=== PATIENT | female | born 1965 | race Caucasian/White ===

== ENCOUNTER 2016-06-30 08:54 | Inpatient (IN) | payer BC ==
[~2016-06-30] VITALS: Ht 167.6 cm; Wt 79.0 kg
[2016-07-05] MEDS ORDERED: LISI10TA3 PO (12:11)
[2016-07-05] MEDS ORDERED: HYDR25TA5 PO (12:11)
[2016-07-05] MEDS ORDERED: LEVO125T4 PO (12:11)
[2016-07-05] MEDS ORDERED: DICL1CAP4 PO (12:12)
[2016-07-23] MEDS: CHLORHEXIDINE GLUCONATE 4% SOLN 120 ML BTL TOP SCH (05:45)
[2016-07-23] MEDS ORDERED: ceFAZolin 2 GM PREMIX 50 ML IV SCH (05:45)
[2016-07-23] MEDS ORDERED: VANCOMYCIN 1000 MG/NS 250 ML (for <70 kg) IV SCH ×2 (05:45)
[2016-07-23] MEDS ORDERED: LACTATED RINGER'S 1000 ML INJ 1,000 ML ONE (05:50)
[2016-07-23] MEDS ORDERED: LACTATED RINGER'S 1000 ML IV SCH (06:00)
[2016-07-23] MEDS ORDERED: METOPROLOL TARTRATE 25 MG TAB PO PRN (06:00)
[2016-07-23] MEDS ORDERED: SODIUM CHLORID 0.9% 500 ML IV SCH (06:00)
[2016-07-23] MEDS ORDERED: INSULIN HUMAN REGULAR 1,000 UNITS/10 ML VIAL SQ PRN (06:00)
[2016-07-23 06:14] VITALS: BP 131/78; PULSE 82; RESP 16; TEMP 99.4; O2SAT 95
[2016-07-23] MEDS ORDERED: LISI-515 PO (06:14)
[2016-07-23] MEDS ORDERED: GENTAMICIN SULFATE 80 MG/2 ML VIAL ONE (07:45)
[2016-07-23] MEDS ORDERED: FAMOTIDINE 20 MG/2 ML VIAL ONE (08:16)
[2016-07-23] MEDS ORDERED: ACETAMINOPHEN 1000 MG/100 ML VIAL IV ONE (08:16)
[2016-07-23] MEDS ORDERED: MIDAZOLAM HCL 2 MG/2 ML VIAL ONE (08:16)
[2016-07-23] MEDS ORDERED: HYDROmorphone HCL PF 2 MG/ML VIAL ONE (08:17)
[2016-07-23] MEDS ORDERED: fentaNYL CITRATE 250 MCG/5 ML AMP ONE (08:17)
[2016-07-23] MEDS: TRANEXAMIC ACID IV SCH ×2 (08:30→08:54)
[2016-07-23] MEDS: EXPAREL PERI-ARTICULAR INJECTION (TOTAL VOL. 60 ML) P-ARTICULR SCH ×4 (08:30→09:16)
[2016-07-23] MEDS: SODIUM CHLORIDE 0.9% IV SCH ×2 (08:30→08:54)
[2016-07-23] MEDS ORDERED: HYDR-3366 PO (09:12)
[2016-07-23] MEDS ORDERED: XARE10TA PO (09:12)
[2016-07-23] MEDS ORDERED: WALKER/ADULT/FO1 MIS (09:12)
--- NOTE | 2016-07-23 09:13 | HHI.FF ---
Face to Face Verification Diagnosis: (1) Status post total replacement of right hip Physical Therapy Gait training Hip: Total hip, Protocol: Right, Progress to weight bearing Right LE Weight Bearing: WB as tolerated Nursing Dressing Changes: Daily dressing change, Coverderm/Primapore (begin adding xeroform on POD 10) I have seen patient Tamara Coleman on 07/23/16. My clinical findings support the need for the requested home health care services because: Ltd mobility - disease progression I certify that my clinical findings support that this patient is homebound because: Post-op weakness Kirit Loaiza Jul 23, 2016 09:13
[2016-07-23] MEDS ORDERED: SODIUM CHLORIDE 0.9% FLUSH 5 ML FLUSH IVF PRN (10:30)
[2016-07-23] MEDS ORDERED: ONDANSETRON HCL 4 MG/2 ML VIAL IVP PRN (10:30)
[2016-07-23] MEDS ORDERED: NALOXONE HCL 0.4 MG/ML AMP IV PRN (10:30)
[2016-07-23] MEDS ORDERED: MORPHINE SULFATE 4 MG/ML INJ IV PUSH PRN (10:30)
--- NOTE | 2016-07-23 10:35 | PD.ORT.PN ---
Subjective Subjective Remarks POD#0 s/p right MINERVA--- anterior Objective Vitals Vital Signs Date Time Temp Pulse Resp B/P Pulse Ox O2 Delivery O2 Flow Rate FiO2 07/23/16 06:14 99.4 82 16 131/78 95 Objective Remarks Clean dry dressing in place. Drain in place. Assessment & Plan Assessment and Plan Discontinue drain postop day #1 after physical therapy Discontinue Gamble postop day 1 Weight-bear as tolerated Plan on SNF on Tuesday Xarelto 28 days--history of DVT Quique Morrison MD Jul 23, 2016 10:34
--- NOTE | 2016-07-23 10:38 | PD.OP ---
cc: Quique Logan MD Operative Report Date of Surgery: Jul 23, 2016 Preoperative Diagnosis: Severe right hip osteoarthritis Postoperative Diagnosis: Procedure: Right total hip arthroplasty via anterior approach Anesthesia: Gen. Surgeon: Quique Logan Diesel Engineer(s): BERE Connors PA-C The surgical procedure was assisted by my physician liaison inspection laboratory assistant. My P.A. presence was necessary throughout this case for the manipulation and positioning of the surgical extremity. My P.A. was assisting me throughout the duration of this procedure. The skill set of a physician liaison inspection laboratory assistant was medically necessary to complete this procedure. During the surgical case the surgical assist was working at the back table and the physician liaison inspection laboratory assistant was directly assisting me. Operation and Findings: PLAN OF ACTIVITY Weight bear as tolerated. DRAINS: 7-mm SHANITA drain. IMPLANTS USED DePuy Corail size 13 stem with a size [50] Washington Gription cup, size 50 Altrx polyethylene liner cup and a [32+1.5] ceramic Biolox ceramic head. DETAILS OF PROCEDURE: This patient has a long history of hip pain. Patient was found to have severe osteoarthritis. The patient had radiographic evidence of joint space narrowing with [id number] arthritis and osteophytes around the acetabulum as well as the femoral head. There was also some cystic changes. The patient failed conservative treatment with pain medications, anti-inflammatories, physical therapy, assistive devices including a cane, as well as therapeutic injection of the hip. Patient's hip arthritis was limiting his ability to ambulate and perform activities of daily living. The patient wished to proceed with surgery and informed consent was obtained. Operative site was marked. I discussed both posterior approach and anterior approach with the patient and decision was made for anterior approach. Patient was brought to OR and placed on OR table. IV sedation and general anesthesia was administered by anesthesiologist. Patient positioned on a Jaimee table and was given IV antibiotics. Time-out procedure was performed. The hip and thigh were prepped with alcohol followed by Hibiclens. The thigh was draped in the usual sterile fashion. Clean Air Suite was used for this procedure. The procedure began with a 5-inch incision over the anterolateral thigh. Subcutaneous tissue was dissected with Bovie. The fascia over the tensa fasciae latae was incised. Care was taken to avoid injury to the lateral femoral cutaneous nerve. The tensor muscle was retracted laterally. Sartorius was retracted medially. Retractors were now placed. The reflected head of the rectus is now elevated. A capsulotomy was performed over the anterior head capsule. Sutures were placed to help retract the capsule. At this point the femoral head and neck were identified. With soft tissue protected, oscillating saw was used to make a cut through the femoral neck, the femoral head was now removed. At this point attention was turned to preparation of the acetabulum. The labrum was excised. The acetabulum was sequentially reamed up to size [50]. A Washington cup was now placed. Fluoroscopy was used to aid in identification of appropriate version. Cup was fully impacted and found to have excellent fit. Hole eliminator was now placed. The liner was now impacted into the cup. At this point the hip was externally rotated. A hook was placed around the proximal femur. The capsule was released off the lateral and medial femur. The hip was now extended and adducted. Retractors were placed around the proximal femur to allow for exposure. A box osteotome was used to remove the lateral cortex of the femoral neck. A broach was used to help lateralize the prosthesis. Canal finder was used to create a path down the canal. Next, the canal was sequentially broached up to size [12]. This was found to be an excellent fit. Calcar planer was placed. A standard head was placed, hip was reduced. Trial head was now was placed and the hip was found to have excellent stability with good range of motion. The leg lengths were measured under fluoroscopy. She had a significant leg length discrepancy preoperatively with right leg approximately 1 inch shorter than the left. The right leg was still shorter than the left. The 12 Trial broach was removed. The canal was broached up to size 13. The size 13 was left proud to accommodate the leg length discrepancy. Leg lengths were remeasured under fluoroscopy and found to be equal at this time. The size 13 Corail stem was opened. Stem was fully impacted into the proximal femur in appropriate version. The femoral head was placed. The hip was again reduced. Fluoroscopy confirmed excellent alignment of prosthesis. The wound was thoroughly irrigated and capsule was closed with #1 Vicryl. The fascia over the tensor fasciae muscle was closed with #1 Vicryl, subcutaneous tissue was closed with 3-0 Vicryl and the skin was closed with jagdish and Dermabond skin closure. The capsule layers were injected with a mixture of saline and bupivicaine. Dressings were applied. The patient was transferred to Recovery Room in stable condition. Quique Logan MD Jul 23, 2016 10:38
[2016-07-23] MEDS ORDERED: NEOSTIGMINE 3 MG/3 ML SYR IV ONE (10:39)
[2016-07-23] MEDS ORDERED: PHENYLEPH/NS 1000 MCG/10 ML SYR IV ONE (10:39)
[2016-07-23] MEDS ORDERED: PROPOFOL 200 MG/20 ML AMP IV ONE (10:39)
[2016-07-23] MEDS ORDERED: LACTATED RINGER'S 1000 ML INJ 1,000 ML IV ONE (10:39)
[2016-07-23] MEDS ORDERED: ePHEDrine/NS 25 MG/5 ML SYR IV ONE (10:39)
[2016-07-23] MEDS ORDERED: ONDANSETRON HCL 4 MG/2 ML VIAL IV PUSH ONE (10:39)
--- NOTE | 2016-07-23 10:46 | RADRPT ---
EXAM DATE/TIME: 07/23/2016 09:05 [facility] COMPARISON: No previous studies available for comparison. INDICATIONS : Post-op total right hip arthroplasty. MEDICAL HISTORY : None. SURGICAL HISTORY : None. ENCOUNTER: Initial ACUITY: 1 day PAIN SCORE: Non-responsive. LOCATION: Right hip. CONCLUSION: Fluoroscopic images during placement of hip prosthesis. No hardware loosening or new fracture. Nick Queen MD on July 23, 2016 at 10:44 Board Certified Radiologist. This report was verified electronically.
[2016-07-23] MEDS: KETOROLAC TROMETHAMINE 30 MG/ML (IVP) VIAL IV PUSH SCH ×2 (11:00→21:03)
[2016-07-23] MEDS ORDERED: DO NOT ADM ANY ANTICOAGULANT DRUGS XX PRN (11:00)
[2016-07-23] MEDS ORDERED: *morphine SULFATE 8 MG/ML PERIprocedure ONLY ONE (11:15)
[2016-07-23] MEDS: LACTATED RINGER'S 1000 ML INJ 1,000 ML IV SCH ×2 (11:24→20:17)
--- NOTE | 2016-07-23 11:40 | RADRPT ---
EXAM DATE/TIME: 07/23/2016 11:09 [facility] COMPARISON: No previous studies available for comparison. INDICATIONS : Post-op right hip. MEDICAL HISTORY : None. SURGICAL HISTORY : None. ENCOUNTER: Initial ACUITY: 1 day PAIN SCORE: 5/10 LOCATION: Right Hip. FINDINGS: Examination of the hip demonstrates total hip arthroplasty in satisfactory position. The alignment is anatomic. CONCLUSION: Post surgical changes as above. Anand Booker MD on July 23, 2016 at 11:39 Board Certified Radiologist. This report was verified electronically.
[2016-07-23] MEDS ORDERED: Post-op Orders (for Pharmacy) MISC XX ONE (11:57)
[2016-07-23 14:30] VITALS: BP 118/82; PULSE 94; RESP 18; TEMP 96.2; O2SAT 97
[2016-07-23] MEDS: ceFAZolin 2 GM PREMIX 50 ML IV SCH ×2 (15:01→20:16)
[2016-07-23 16:00] VITALS: BP 146/87; PULSE 100; RESP 16; TEMP 96.3; O2SAT 97
[2016-07-23] MEDS ORDERED: diphenhydrAMINE HCL 25 MG CAP PO PRN (16:00)
[2016-07-23] MEDS: ACETAMINOPHEN/HYDROcodone 325 MG/10 MG TAB PO PRN ×3 (16:40→23:39)
[2016-07-23] MEDS: SODIUM CHLORIDE 0.9% FLUSH 5 ML FLUSH IVF SCH (20:17)
[2016-07-23] MEDS: VANCOMYCIN INJ 1,000 MG in SODIUM CHLOR 0.9% 250 ML INJ 250 ML IV SCH (20:17)
[2016-07-23 20:55] VITALS: BP 118/66; PULSE 89; RESP 17; TEMP 98; O2SAT 95
[2016-07-23] MEDS: MENTHOL LOZENGE BUCCAL PRN (21:00)
[2016-07-23 23:45] VITALS: BP 105/49; PULSE 104; RESP 17; TEMP 98.8; O2SAT 96
[2016-07-24] VITALS (7 sets, daily range): BP systolic 101–124; BP diastolic 61–76; PULSE 71–97; RESP 16–18; TEMP 96.5–98.9; O2SAT 95–98
[2016-07-24] MEDS: MENTHOL LOZENGE BUCCAL PRN ×2 (01:51→05:18)
[2016-07-24] MEDS: ceFAZolin 2 GM PREMIX 50 ML IV SCH (03:08)
[2016-07-24] MEDS: ACETAMINOPHEN/HYDROcodone 325 MG/10 MG TAB PO PRN ×7 (03:09→22:45)
[2016-07-24] MEDS: CHLORHEXIDINE GLUCONATE 4% SOLN 120 ML BTL TOP SCH ×2 (04:18→23:14)
[2016-07-24] MEDS: LEVOTHYROXINE SODIUM 125 MCG TAB PO SCH (05:00)
[2016-07-24] MEDS: VANCOMYCIN INJ 1,000 MG in SODIUM CHLOR 0.9% 250 ML INJ 250 ML IV SCH (07:29)
[2016-07-24 08:13] LABS: HEMATOCRIT 31.4 % (35.0-46.0); REVIEW FLAG FINAL
[2016-07-24] MEDS: SODIUM CHLORIDE 0.9% FLUSH 5 ML FLUSH IVF SCH ×2 (09:00→20:02)
[2016-07-24] MEDS: LISINOPRIL 20 MG TAB PO SCH (09:19)
[2016-07-24] MEDS: HYDROCHLOROTHIAZIDE 25 MG TAB PO SCH (09:19)
[2016-07-24] MEDS: KETOROLAC TROMETHAMINE 30 MG/ML (IVP) VIAL IV PUSH SCH ×2 (10:16→22:36)
[2016-07-24] MEDS: ENOXAPARIN SODIUM 40 MG/0.4 ML SYRINGE SQ SCH (10:16)
--- NOTE | 2016-07-24 10:32 | PD.ORT.PN ---
Subjective Subjective Remarks no issues. pain controlled. Objective Vitals Vital Signs Date Time Temp Pulse Resp B/P Pulse Ox O2 Delivery O2 Flow Rate FiO2 07/24/16 04:40 98.6 97 16 124/69 97 07/23/16 23:45 98.8 104 17 105/49 96 07/23/16 20:55 98.0 89 17 118/66 95 07/23/16 19:16 Room Air 07/23/16 18:41 Nasal Cannula 2.00 07/23/16 16:00 96.3 100 16 146/87 97 07/23/16 14:30 96.2 94 18 118/82 97 07/23/16 13:30 98.2 74 13 103/72 96 Room Air 07/23/16 13:00 71 12 121/75 97 Room Air 07/23/16 12:30 63 15 118/62 97 Room Air 07/23/16 12:00 61 12 115/59 97 Room Air 07/23/16 11:45 60 12 114/67 99 Nasal Cannula 2 07/23/16 11:30 65 12 125/72 98 Nasal Cannula 2 07/23/16 11:15 72 14 120/71 99 Nasal Cannula 2 07/23/16 11:00 97.5 71 15 117/74 99 Nasal Cannula 2 I/O 07/23/16 07/23/16 07/23/16 07/24/16 07/24/16 07/24/16 07:00 15:00 23:00 07:00 15:00 23:00 Intake Total 2200 ml 480 ml 1195 ml Output Total 540 ml 1530 ml 620 ml Balance 1660 ml -1050 ml 575 ml Intake Oral 200 ml 480 ml 240 ml IV Total 955 ml Other 2000 ml Output Urine Total 1450 ml 600 ml Drainage Total 40 ml 80 ml 20 ml Estimated Blood Loss 100 ml Other 400 ml # Bowel Movements 0 0 Result Diagram: 07/24/16 0734 Imaging Last 24 hours Impressions Hip and Pelvis X-Ray 07/23/16 1030 Signed Impressions: Service Date/Time: Saturday, July 23, 2016 11:09 - CONCLUSION: Post surgical changes as above. Anand Booker MD Objective Remarks RLE: nvi. SILT distally. Clean dry dressing in place. Assessment & Plan Assessment and Plan POD1- right MINERVA doing great. pain controlled. doing well with PT Weight-bear as tolerated Plan on SNF on Tuesday Xarelto 28 days--history of DVT will follow Huang Ramirez Jr., MD Jul 24, 2016 10:32
[2016-07-24] MEDS: LACTATED RINGER'S 1000 ML INJ 1,000 ML IV SCH ×2 (11:30→23:13)
[2016-07-24] MEDS ORDERED: BISACODYL 10 MG SUPP RECTAL PRN (14:15)
[2016-07-24] MEDS: MAGNESIUM HYDROXIDE SUSP 30 ML CUP PO PRN (17:09)
[2016-07-24] MEDS: POLYETHYLENE GLYCOL 17 GM PKG PO PRN (17:09)
[2016-07-24] MEDS: DOCUSATE SODIUM 100 MG CAP PO SCH (20:02)
[2016-07-25] MEDS: ACETAMINOPHEN/HYDROcodone 325 MG/10 MG TAB PO PRN ×7 (04:42→23:56)
[2016-07-25] MEDS: LEVOTHYROXINE SODIUM 125 MCG TAB PO SCH (04:42)
[2016-07-25 08:00] VITALS: BP 125/83; PULSE 83; RESP 18; TEMP 98.1; O2SAT 94
[2016-07-25] MEDS: ENOXAPARIN SODIUM 40 MG/0.4 ML SYRINGE SQ SCH (08:38)
[2016-07-25] MEDS: POLYETHYLENE GLYCOL 17 GM PKG PO PRN (08:38)
[2016-07-25] MEDS: MAGNESIUM HYDROXIDE SUSP 30 ML CUP PO PRN (08:38)
[2016-07-25] MEDS: HYDROCHLOROTHIAZIDE 25 MG TAB PO SCH (08:39)
[2016-07-25] MEDS: DOCUSATE SODIUM 100 MG CAP PO SCH ×2 (08:39→21:05)
[2016-07-25] MEDS: LISINOPRIL 20 MG TAB PO SCH (08:39)
[2016-07-25] MEDS: SODIUM CHLORIDE 0.9% FLUSH 5 ML FLUSH IVF SCH ×2 (08:39→21:05)
[2016-07-25 10:05] VITALS: BP 111/63; PULSE 90; RESP 18; TEMP 100.5; O2SAT 97
[2016-07-25 12:00] VITALS: BP 123/68; PULSE 87; RESP 18; TEMP 98; O2SAT 95
[2016-07-25] MEDS: LACTATED RINGER'S 1000 ML INJ 1,000 ML IV SCH ×2 (12:30→22:16)
[2016-07-25 16:00] VITALS: BP 111/63; PULSE 90; RESP 18; TEMP 100.5; O2SAT 97
--- NOTE | 2016-07-25 17:35 | PD.ORT.PN ---
Subjective Subjective Remarks no issues. pain controlled. c/o cold sores Objective Vitals Vital Signs Date Time Temp Pulse Resp B/P Pulse Ox O2 Delivery O2 Flow Rate FiO2 07/25/16 08:00 98.1 83 18 125/83 94 07/24/16 22:46 98.6 84 18 109/69 95 07/24/16 20:43 97 Nasal Cannula 2.00 07/24/16 20:01 98.9 93 16 101/61 95 I/O 07/24/16 07/24/16 07/24/16 07/25/16 07/25/16 07/25/16 07:00 15:00 23:00 07:00 15:00 23:00 Intake Total 1195 ml 1200 ml 480 ml Output Total 620 ml Balance 575 ml 1200 ml 480 ml Intake Oral 240 ml 1200 ml 480 ml IV Total 955 ml Output Urine Total 600 ml Drainage Total 20 ml # Voids 3 1 # Bowel Movements 0 Result Diagram: 07/24/16 0734 Imaging Last 24 hours Impressions Hip and Pelvis X-Ray 07/23/16 1030 Signed Impressions: Service Date/Time: Saturday, July 23, 2016 11:09 - CONCLUSION: Post surgical changes as above. Anand Booker MD Objective Remarks RLE: nvi. SILT distally. Clean dry dressing in place. Assessment & Plan Assessment and Plan POD2- right MINERVA doing great. pain controlled. doing well with PT -valtrex for cold sore Weight-bear as tolerated Plan on SNF on Tuesday Xarelto 28 days--history of DVT Huang Ramirez Jr., MD Jul 25, 2016 17:35
[2016-07-25 20:00] VITALS: BP 125/64; PULSE 80; RESP 20; TEMP 101.2; O2SAT 94
[2016-07-25 22:28] VITALS: TEMP 98.7
[2016-07-26] VITALS: BP 125/64; PULSE 80; RESP 20; TEMP 99.3; O2SAT 94
[2016-07-26] MEDS: LEVOTHYROXINE SODIUM 125 MCG TAB PO SCH (06:15)
[2016-07-26] MEDS: ACETAMINOPHEN/HYDROcodone 325 MG/10 MG TAB PO PRN ×4 (06:15→16:47)
--- NOTE | 2016-07-26 06:57 | PD.ORT.PN ---
Subjective Subjective Remarks POD 3 s/p right MINERVA - anterior doing well. out of bed. slight pain but advancing well; Objective Vitals Vital Signs Date Time Temp Pulse Resp B/P Pulse Ox O2 Delivery O2 Flow Rate FiO2 07/26/16 00:00 99.3 80 20 125/64 94 07/25/16 22:28 98.7 07/25/16 20:00 101.2 80 20 125/64 94 07/25/16 16:00 100.5 90 18 111/63 97 07/25/16 12:00 98.0 87 18 123/68 95 07/25/16 10:05 100.5 90 18 111/63 97 07/25/16 08:00 98.1 83 18 125/83 94 I/O 07/25/16 07/25/16 07/25/16 07/26/16 07/26/16 07/26/16 07:00 15:00 23:00 07:00 15:00 23:00 Intake Total 480 ml 600 ml 480 ml 480 ml Output Total 450 ml Balance 480 ml 600 ml 480 ml 30 ml Intake Oral 480 ml 600 ml 480 ml 480 ml Output Urine Total 450 ml # Voids 1 4 4 # Bowel Movements 0 0 0 Result Diagram: 07/24/16 0734 Imaging Last 24 hours Impressions Hip and Pelvis X-Ray 07/23/16 1030 Signed Impressions: Service Date/Time: Saturday, July 23, 2016 11:09 - CONCLUSION: Post surgical changes as above. Anand Booker MD Objective Remarks RLE: nvi. SILT distally. Clean dry dressing in place. Assessment & Plan Assessment and Plan POD3- right MINERVA doing great. pain controlled. doing well with PT -valtrex for cold sore Weight-bear as tolerated Plan on SNF on Tuesday Xarelto 28 days--history of DVT f/u with [facility] or PA in 2 weeks Kirit Loaiza Jul 26, 2016 06:57
[2016-07-26 08:00] VITALS: BP 116/66; PULSE 83; RESP 19; TEMP 97.3; O2SAT 95
[2016-07-26] MEDS: ENOXAPARIN SODIUM 40 MG/0.4 ML SYRINGE SQ SCH (08:50)
[2016-07-26] MEDS: DOCUSATE SODIUM 100 MG CAP PO SCH (08:51)
[2016-07-26] MEDS: LISINOPRIL 20 MG TAB PO SCH (08:51)
[2016-07-26] MEDS: HYDROCHLOROTHIAZIDE 25 MG TAB PO SCH (08:51)
[2016-07-26] MEDS: SODIUM CHLORIDE 0.9% FLUSH 5 ML FLUSH IVF SCH (08:55)
[2016-07-26] MEDS ORDERED: valACYclovir HCL 500 MG TAB PO SCH (09:00)
--- NOTE | 2016-07-26 09:46 | HHI.DS ---
Discharge Summary Admission Date Jul 23, 2016 at 05:24 Discharge Date: Jul 26, 2016 Admitting Diagnosis Right hip osteoarthritis Diagnosis: (1) Status post total replacement of right hip Diagnosis: Principal Procedures Total hip arthroplasty with anterior approach of right hip CBC/BMP: 07/24/16 0734 Significant Findings Laboratory Tests Test 07/24/16 07:34 Hemoglobin 10.7 GM/DL (11.6-15.3) Hematocrit 31.4 % (35.0-46.0) PE at Discharge RLE: nvi. SILT distally. Clean dry dressing in place. Hospital Course Patient was admitted from outpatient setting for an elective total hip arthroplasty of the right hip on July 23, 2016. She tolerated the procedure well. She was admitted the orthopedic floor. She was out of bed and ambulating on postoperative day 1 with assistance. Dressing changes were initiated on postoperative day 2 as well as the drain discontinued. She was doing relatively well on postoperative day 3 but was having issues with pain. On postoperative day 4 she was hemodynamically stable, pain control, and ambulating safely with assistance and fit for discharge to rehabilitation facility. She'll be discharged today and she'll follow-up in the office with Dr. Logan or his PA in 2 weeks. She'll continue weightbearing as tolerated and she'll keep her incision clean and dry. Pt Condition on Discharge: Good Discharge Disposition: Discharge to SNF Discharge Instructions Diet Instructions: As Tolerated, No Restrictions Activities You Can Perform: Weight Bearing as Adelia Follow up Referrals: Orthopedics - 08/06/16 @ [facility] with Quique Logan MD New Medications: Hydrocodone-Acetaminophen ([place]) 10-325 Mg Tab 1 TAB PO Q4H PRN PAIN #60 Ref 0 TAB Rivaroxaban (Xarelto) 10 Mg Tab 10 MG PO DAILY Blood Clot Prevention #30 Ref 0 TAB Walker/Adult/Folding (Walker/Adult/Folding) 1 Mis Mis 1 EA .ROUTE DIRECTED #1 Ref 0 EA Continued Medications: Hydrochlorothiazide (Hydrochlorothiazide) 25 Mg Tab 25 MG PO DAILY Blood Pressure Management #30 Ref 0 TAB Levothyroxine (Levothyroxine) 125 Mcg Tab 125 MCG PO DAILY Thyroid #30 Ref 0 TAB Lisinopril (Lisinopril) 20 Mg Tab 20 MG PO DAILY #30 Ref 0 TAB Discontinued Medications: Diclofenac (Zorvolex) 35 Mg Cap 35 MG PO BID Pain Management Ref 0 CAP Kirit Loaiza Jul 26, 2016 09:46
[2016-07-26 12:00] VITALS: BP 119/70; PULSE 81; RESP 19; TEMP 97.2; O2SAT 95
[2016-07-26] MEDS: LACTATED RINGER'S 1000 ML INJ 1,000 ML IV SCH (13:30)
[2016-07-26 16:00] VITALS: BP 120/65; PULSE 80; RESP 19; TEMP 97.4; O2SAT 95
== END 2016-07-26 18:01 | DRG 470 ==
LOC: EDUNIT# 07-15 09:00 → HSDI 07-23 05:24 → N06A 07-23 14:08
PROVIDERS: ADMIT Orthopaedic Surgery Orthopaedic Trauma; ATTEND Orthopaedic Surgery Orthopaedic Trauma
PROC: 0SR904Z Replacement of Right Hip Joint with Ceramic on Polyethylene Synthetic Substitute, Open Approach (ICD-10-PCS; principal; 2016-07-23 08:38)
DX: M16.11 Unilateral primary osteoarthritis, right hip (principal); I10 Essential (primary) hypertension; B00.1 Herpesviral vesicular dermatitis; E03.9 Hypothyroidism, unspecified
CPT/HCPCS: 73501; 73502; 76000; 85014; 85018; 86850; 86900; 86901; C1776; C9290; J0131; J0690; J1170; J1580; J1650; J1885; J2250; J2270; J2370; J2405; J2710; J3010; J3370; J7050; J7120

== ENCOUNTER → 2016-07-05 | Outpatient (CLI) | payer BC ==
[~2016-07-05] MED LIST: DICL1CAP4 PO; HYDR-3366 PO; HYDR25TA5 PO; LEVO125T4 PO; LISI-515 PO; LISI10TA3 PO; WALKER/ADULT/FO1 MIS; XARE10TA PO
== END ==
LOC: CPRE 11:40
PROVIDERS: ATTEND Orthopaedic Surgery Orthopaedic Trauma
DX: Z01.812 Encounter for preprocedural laboratory examination (principal); Z96.60 Presence of unspecified orthopedic joint implant; M79.609 Pain in unspecified limb